=== PATIENT | male | born 1990 | race Caucasian/White ===

== ENCOUNTER 2025-04-03 10:50 | Day surgery (SDC) | payer BC ==
[2025-03-30 17:09] VITALS: BMI 29.8
[2025-03-30 17:40] LABS: #Basophils 0.07 10x3/uL (0.0-0.2); #Eosinophils 0.25 10x3/uL (0.0-0.7); #Monocytes 0.85 10x3/uL (0.11-0.59); #Neutrophils 3.97 10x3/uL (1.40-6.50); %Basophils 0.9 % (0.0-1.0); %Eosinophils 3.4 % (0.0-10.0); %Lymphocytes 30.5 % (21.0-51.0); %Monocytes 11.5 % (0.0-10.0); %Neutrophils 53.4 % (42.0-75.0); Hematocrit 47.2 % (42.0-52.0); Hemoglobin 15.7 g/dL (14.0-18.0); Mean Corpuscular Hemoglobin 29.8 pg (27.0-31.0); Mean Corpuscular Volume 89.6 fL (78.0-98.0); Platelet Count 282 10x3/uL (130-400); Red Blood Cell (RBC) Count 5.27 mill/uL (4.70-6.10); White Blood Cell (WBC) Count 7.42 10x3/uL (4.8-10.8)
[2025-03-30 17:54] LABS: INR-International Normal Ratio 1.0; PTT 29.3 sec (22.9-36.1); Prothrombin Time 12.8 sec (12.0-14.7)
[2025-03-30 17:56] LABS: ALT (SGPT) 19 U/L (Less than 45); AST (SGOT) 22 U/L (11-34); Albumin 4.9 g/dL (3.1-4.5); Alkaline Phosphatase 65 U/L (40-110); Anion Gap 16 mmol/L (10-20); BUN (Urea Nitrogen) 18 mg/dL (8.9-20.6); Bilirubin, Total 0.7 mg/dL (0.3-1.2); Calc. Creatinine Clearance 0 mL/min (70-130); Calcium 9.7 mg/dL (7.8-10.44); Carbon Dioxide 26 mmol/L (22-29); Chloride 104 mmol/L (98-107); Globulin 3.1 g/dL (2.4-3.5); Glucose 84 mg/dL (70-105); Potassium 4.1 mmol/L (3.5-5.1); Sodium 142 mmol/L (136-145)
[2025-04-01 16:13] LABS: Myoglobin, Serum 30.0 ng/mL (28-72)
[2025-04-02 13:13] LABS: Hemoglobin,Free - Plasma 18.2 mg/dL (0.0-4.9)
[2025-04-03] MEDS ORDERED: Heparin 10,000 UNITS/ 10 ML VIAL ONE (13:51)
[2025-04-03] MEDS ORDERED: Isoproterenol 0.2 MG/1 ML AMP ONE (13:51)
[2025-04-03] MEDS ORDERED: Rocuronium Bromide 10 MG/ML (10ML VIAL) ONE ×2 (15:27→17:23)
[2025-04-03] MEDS ORDERED: PHENYLEPHRINE-NS 100 MCG/ML 10 ML SYRINGE ONE (15:28)
[2025-04-03] MEDS ORDERED: Lidocaine 2% PF 100 mg/5 ml Syringe ONE (15:28)
[2025-04-03] MEDS ORDERED: PROPOFOL 200 MG/20 ML VIAL ONE (16:00)
[2025-04-03] MEDS ORDERED: Ondansetron PF 4 MG/2 ML Vial ONE (17:37)
[2025-04-03] MEDS ORDERED: SUGAMMADEX SODIUM 200 MG/2 ML VIAL ONE (17:44)
[2025-04-03] MEDS ORDERED: Apixaban 5 MG TAB PO SCH (19:00)
[2025-04-03] MEDS ORDERED: Acetaminophen 325 MG TAB ONE (19:01)
== END 2025-04-03 20:45 | disposition home or self-care (01) ==
LOC: SDC 10:50
PROVIDERS: ATTEND Internal Medicine Cardiovascular Disease
PROC: 4A027FZ Measurement of Cardiac Rhythm, Via Natural or Artificial Opening (ICD-10-PCS; principal; 2025-04-03)
DX: I48.0 Paroxysmal atrial fibrillation (principal); Z98.890 Other specified postprocedural states
CPT/HCPCS: 80053; 83010; 83051; 83874; 85025; 85347; 85610; 85730; 86850; 86900; 86901; 93005; 93623; 93656; 93657; C1730; C1733; C1759; C1760; C1766; C1769; C1893; C1894; J1100; J1644; J2003; J2250; J2405; J2704; J2720; J3010